=== PATIENT | male | born 1990 | race Caucasian/White ===

== ENCOUNTER 2025-02-26 21:15 | Emergency (ER) | payer BC ==
[~2025-02-26] VITALS: Ht 188 cm; Wt 79.4 kg
[2025-02-26 21:35] VITALS: BP 135/84; TEMP 98.5; O2SAT 98
[2025-02-26] MEDS ORDERED: TDAP [DIPH/PERTUSSIS/TET] 0.5 ML VIAL IM ONE (21:50)
[2025-02-26] MEDS: TDAP [DIPH/PERTUSSIS/TET] 0.5 ML VIAL IM ONE (21:54)
== END 2025-02-26 22:00 | disposition home or self-care (01) ==
LOC: ER 21:17
DX: S01.21XA Laceration without foreign body of nose, initial encounter (principal); X58.XXXA Exposure to other specified factors, initial encounter; Y93.67 Activity, basketball; Y92.89 Other specified places as the place of occurrence of the external cause; Y99.9 Unspecified external cause status
CPT/HCPCS: 90715